=== PATIENT | female | born 1980 | race Caucasian/White ===

== ENCOUNTER 2016-12-22 17:12 | Emergency (ER) | payer OTHER ==
[~2016-12-22] VITALS: Ht 185.4 cm
[2016-12-22 17:33] LABS: HEMATOCRIT 36.5 % (36.0-46.0); MCH 28.1 PG (29.0-34.0); MCHC 34.2 G/DL (30.0-36.0); MEAN PLAT.VOLUME 9.2 uM^3 (9.5-12.4); PLATELET COUNT 232 K/uL (156-360); RBC DIS.WIDTH-CV 12.4 % (11.8-14.6); RBC DIS.WIDTH-SD 37.2 % (39-53); RED BLOOD COUNT 4.45 M/uL (3.80-5.20)
[2016-12-22 17:42] LABS: ADD MIUA? YES; BILIRUBIN MODERATE; BLOOD NEGATIVE; COLOR AMBER ((YELLOW)); GLUCOSE (STRIP) NEGATIVE; KETONES NEGATIVE; LEUKOCYTES NEGATIVE; NITRITE NEGATIVE; PROTEIN (STRIP) 100; SPECIFIC GRAVITY 1.035 (1.000-1.030)
[2016-12-22 17:44] LABS: CHLORIDE 107 mEq/L (99-109); POTASSIUM 3.5 mEq/L (3.7-5.4); SODIUM 142 mEq/L (136-147)
[2016-12-22 17:47] LABS: GLUCOSE 136 mg/dL (70-99)
[2016-12-22 17:48] LABS: ANION GAP 13 MEQ/L (2-14); TOTAL BILIRUBIN 1.3 mg/dL (0.0-1.0)
[2016-12-22 17:50] LABS: ALKALINE PHOSPHATASE 1000 IU/L (3-129); GFR ESTIMATE (CALCULATED) > 59 mL/min/
[2016-12-22 17:51] LABS: UREA NITROGEN (BUN) 16 mg/dL (9-23)
[2016-12-22 17:59] LABS: QUANTITATIVE HCG < 4.0 MIU/ML
[2016-12-22 18:51] LABS: ICTOTEST POSITIVE
[2016-12-22 19:09] LABS: EPITHELIAL CELLS 2+ /HPF; RED BLOOD CELLS RARE /HPF (0-5); WHITE BLOOD CELLS 0-5 /HPF (0-5)
[2016-12-22 19:10] LABS: BACTERIA 2+ /HPF; MUCUS 2+ /LPF; UCUL ADDED? YES
[2016-12-22 19:11] LABS: CASTS NONE SEEN /LPF; CRYSTALS NONE SEEN
[2016-12-22 19:19] LABS: LIPASE 23 U/L (1.0-51.0)
[2016-12-22] MEDS ORDERED: NORCO 5/3251 TABLET PO (21:48)
[2016-12-22] MEDS ORDERED: MOTRIN600 MG PO (21:48)
[2016-12-22] MEDS ORDERED: ZOFRAN4 MG PO (21:48)
[2016-12-22 22:47] VITALS: BP 111/72
== END 2016-12-22 22:50 | disposition home or self-care (01) ==
LOC: EME 17:12
DX: K80.60 Calculus of gallbladder and bile duct with cholecystitis, unspecified, without obstruction (principal)
CPT/HCPCS: 76705; 80053; 81003; 83690; 84702; 85027; 87086; 99281; 99285; J2270; J2405; J7030